=== PATIENT | female | born 1965 | race Caucasian/White ===

== ENCOUNTER 2019-05-24 12:48 | Outpatient (CLI) | payer BC, SELFPAY ==
--- NOTE | 2019-05-24 14:01 | W.PREOPHP ---
Assessment and Plan Assessment and plan (1) Arthritis of left hip: Status: Chronic Assessment and plan: Plan: Patient is a reliable historian and denies any areas of skin breakdown along the left leg. Educated patient that if they develop any lesions, redness or skin breakdown to contact office as skin concerns would be a reason to cancel surgery. Patient gives verbal understanding. Educated patient on surgery covering surgical technique via models, recovery process, benefits and risks including but not limited to risk of infection, blood clot, fracture, numbness/tingling, damage to soft tissue/blood vessels/nerves in detail. After discussion patient gives verbal understanding of risks and elects to proceed with scheduling surgery. Patient had opportunity to have questions answered to their satisfaction. They will contact office if issues arise. Patient will continue to be scheduled for left total hip replacement with Dr. Brunner. History of Present Illness Narrative: Ms. Mohamud is a 53-year-old female who presents to clinic for pre-operative visit for scheduled left DEANDRE with Dr. Brunner. Patient has been experiencing bilateral hip pain with the left being more severe than the right for several years. Patient was scheduled to have left DEANDRE with Dr. Bustos in [place], [place] but was reportedly cancelled because of her continued smoking. Patient is trying to quit smoking is on nicotine replacement therapy and reports recent weight loss of 65 pounds. Her left hip pain has only progressed to become more severe to the point where she has difficulty driving her car, work and ambulate. Due to her continued pain she was offered and elected to proceed with surgical intervention. Pertinent Surgical Information Reports history of murmur since a child. 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 Denies past medical history of: stroke, cardiac issues, angina, asthma, COPD, sleep apnea, renal issues, liver issues, hepatitis, gastrointestinal issues, ulcers, hyperlipidemia, bleeding disorders, seizures, migraines, anxiety, diabetes, autoimmune disorders, thyroid issues Denies prior complications from surgery or anesthesia. Review of Systems Constitutional Constitutional: Denies fever(s), Denies frequent falls and Denies headache(s) Eyes Eyes: Denies change in vision ENT Ears, Nose, Mouth, and Throat: Denies dizziness, Denies ear discharge, Denies headache(s), Denies epistaxis, Denies nasal discharge and Denies sore throat Cardiovascular Cardiovascular: Denies chest pain, Denies rapid heart rate, Denies irregular heart rhythm, Denies dyspnea, Denies dyspnea on exertion and Denies slow heart rate Respiratory Respiratory: Denies cough, Denies dyspnea, Denies dyspnea on exertion and Denies wheezing Gastrointestinal Gastrointestinal: Denies abdominal pain, Denies melena, Denies hematochezia, Denies constipation, Denies diarrhea, Denies nausea and Denies vomiting Genitourinary Genitourinary: Denies hematuria, Denies dysuria and Denies urinary urgency Musculoskeletal Musculoskeletal: Reports as per HPI, Denies numbness and Denies tingling Neurologic Neurologic: Denies dizziness, Denies frequent falls, Denies headache(s), Denies numbness and Denies tingling Psychiatric Psychiatric: Denies anxiety and Denies depression Allergic/Immunologic Allergic/Immunologic: Denies wheezing PFSH Medical History (Updated 05/24/19 @ 14:17 by Leesa Mello) Allergic rhinitis (Acute) Arthritis (Acute) Claustrophobia (Acute) Depression (Chronic) Hypertension (Chronic) Lumbago with sciatica (Acute) Post-menopausal bleeding (Acute) Social History (Updated 05/22/19 @ 10:02 by Cathleen Victor RN) Smoking/Tobacco Use Status: Current every day Tobacco Type: cigarettes Alcohol Intake: current Alcohol Intake frequency: a few times a week Drug use: Never Substance use type: does not use Current gender identity: female Do you feel safe at home: Yes Do you feel safe in your relationship?: Yes Meds Home Medications and Allergies Home Medications Medication Instructions Recorded Confirmed Type acetaminophen 500 mg tablet 1,000 mg PO Q4H PRN tab 05/22/19 05/24/19 History bupropion HCl 150 mg 24 hr tablet, 150 mg PO QAM 05/22/19 05/24/19 History extended release gabapentin 100 mg capsule 100 mg PO BID 05/22/19 05/24/19 History sertraline 50 mg tablet 50 mg PO QAM 05/22/19 05/24/19 History Allergies Allergy/AdvReac Type Severity Reaction Status Date / Time No Known Allergies Allergy Verified 05/24/19 14:19 Exam Const General: cooperative and no acute distress HENMT Head: normal to inspection, normocephalic and atraumatic Ears: external ears normal General nose exam: external nose normal and no nasal discharge Face and sinus: face symmetric Mouth: oral mucosae normal, lip normal, tongue normal and moist mucous membranes Teeth and gingiva: dentition normal Throat: posterior oropharynx normal Eyes General: appearance normal, both eyes and all related structures Pupils: PERRL (Left eye was less reactive than contralateral ) EOM: EOM intact bilaterally Neck Neck: trachea midline Carotids: normal carotid upstroke Lymphatic: no lymphadenopathy noted Resp Effort & Inspection: normal respiratory effort and able to speak in complete sentences Auscultation: clear to auscultation bilaterally, no rales, no rhonchi and no wheezes Cardio Heart Sounds: S1 normal and S2 normal Pulses: radial pulses present bilaterally Skin General skin exam: no rashes or lesions noted Results Labs Result diagrams: 05/24/19 13:47
[2019-05-24 14:05] LABS: Abs Immature Grans 0.01 k/cumm (0.0-0.09); Absolute Basophil Count 0.02 k/cumm (0.0-0.2); Absolute Lymphocyte Count 2.86 k/cumm (1.2-3.4); Absolute Monocyte Count 0.45 k/cumm (0.11-0.7); Absolute Neutrophil Count 3.93 k/cumm (1.2-6.7); Basophils % 0.3; Eosinophils % 1.4; HCT 39.8 % (36.0-46.0); HGB 13.3 g/dL (12.0-15.5); Immature Grans % 0.1; Lymphocytes % 38.8; Mean Corp. HGB Concentration 33.4 g/dL (32.0-36.0); Mean Corpuscular Hemoglobin 32.2 pg (27.0-33.0); Mean Corpuscular Volume 96.4 fL (80-95); Mean Platelet Volume 9.1 fL (8.0-11.0); Monocytes % 6.1; Neutrophils % 53.3; Platelet Count 307 x1000/uL (130-400); RBC 4.13 m/cumm (4.00-5.20); RBC Distribution Width 14.1 % (11.7-14.6); White Blood Cell Count 7.37 k/cumm (4.4-10.8)
== END 2019-05-24 13:08 ==
PROVIDERS: PCP Neuromusculoskeletal Medicine & OMM; Visit Provider Orthopaedic Surgery
DX: M25.552 Pain in left hip (principal); M16.12 Unilateral primary osteoarthritis, left hip; Z01.818 Encounter for other preprocedural examination; Z01.812 Encounter for preprocedural laboratory examination
CPT/HCPCS: 36415; 86850; 86900; 86901; NC; 85025

== ENCOUNTER 2019-05-29 08:48 | Inpatient (IN) | payer BC, SELFPAY ==
[2019-05-24 13:07] VITALS: BP 135/80; PULSE 87; RESP 16; TEMP 37.4; O2SAT 97
[2019-05-29] VITALS (11 sets, daily range): BP systolic 88–128; BP diastolic 45–91; PULSE 63–81; RESP 10–19; TEMP 36–36.5; O2SAT 94–98
[2019-05-29] MEDS: Lactated Ringers 1,000 ML 80 ML IV ×2 (10:31→14:18)
[2019-05-29] MEDS: ceFAZolin 2 GM/50 ML BAG IVPB ×2 (12:20→18:51)
--- NOTE | 2019-05-29 13:56 | DI.RAD_ITS ---
EXAM: XR HIP LT 1V INDICATION: Left total hip. COMPARISON: No exams were available for comparison TECHNIQUE: 2D digital imaging was performed. FINDINGS: Exam was performed portably in the OR. Components of a left total hip prosthesis are noted. The com ponents appear satisfactorily aligned.
--- NOTE | 2019-05-29 15:58 | DI.RAD_ITS ---
EXAM: XR PELVIS AP INDICATION: check total hip components in RR. COMPARISON: XR HIP LT 1V from 05/29/2019 TECHNIQUE: 2D digital imaging was performed. FINDINGS: Portable exam was performed in the recovery room. A total left hip prosthesis has been placed. The components appear well aligned on this single view. Severe degenerative changes of the right hip are noted.
[2019-05-29] MEDS: POTASSIUM CHLORIDE/0.9% NACL 1,000 ML 125 MEQ IV (16:51)
[2019-05-29] MEDS: Normal Saline Flush 10 ML SYR IV ×2 (16:55→20:18)
--- NOTE | 2019-05-29 17:20 | NUR.NOTE ---
Nursing Note: Patient admitted to Med/Surg room 229 from PACU via stretcher at 1612.
[2019-05-29] MEDS: Docusate Sodium 100 MG CAP PO (20:17)
[2019-05-29] MEDS: Gabapentin 100 MG CAP PO (20:17)
[2019-05-29] MEDS: Ketorolac 30 MG/ML VIAL IVP (20:17)
[2019-05-29] MEDS: oxyCODONE-CR 10 MG TABCR PO (20:19)
[2019-05-30] MEDS: ceFAZolin 2 GM/50 ML BAG IVPB ×2 (00:02→07:08)
[2019-05-30] MEDS: Ketorolac 30 MG/ML VIAL IVP ×2 (02:27→09:15)
[2019-05-30] MEDS: Normal Saline Flush 10 ML SYR IV (02:27)
[2019-05-30 03:33] VITALS: BP 124/78; PULSE 82; RESP 18; TEMP 36.5; O2SAT 97
[2019-05-30 07:35] VITALS: BP 123/71; PULSE 78; RESP 17; TEMP 36; O2SAT 97
[2019-05-30 07:44] LABS: HCT 32.9 % (36.0-46.0); HGB 10.7 g/dL (12.0-15.5); Mean Corp. HGB Concentration 32.5 g/dL (32.0-36.0); Mean Corpuscular Hemoglobin 31.5 pg (27.0-33.0); Mean Corpuscular Volume 96.8 fL (80-95); Mean Platelet Volume 9.5 fL (8.0-11.0); Platelet Count 260 x1000/uL (130-400); RBC Distribution Width 13.9 % (11.7-14.6); White Blood Cell Count 6.05 k/cumm (4.4-10.8)
[2019-05-30] MEDS: POTASSIUM CHLORIDE/0.9% NACL 1,000 ML 125 MEQ IV (08:22)
[2019-05-30] MEDS: Docusate Sodium 100 MG CAP PO (09:16)
[2019-05-30] MEDS: Multivitamin w/Minerals TAB 1 TAB PO (09:17)
[2019-05-30] MEDS: Pantoprazole 40 MG TABCR PO (09:17)
[2019-05-30] MEDS: Gabapentin 100 MG CAP PO (09:18)
[2019-05-30] MEDS: Sertraline 50 MG TAB PO (09:19)
[2019-05-30] MEDS: buPROPion-XL 150 MG TABCR PO (09:19)
[2019-05-30] MEDS: oxyCODONE-CR 10 MG TABCR PO (09:19)
[2019-05-30 09:37] VITALS: O2SAT 97
[2019-05-30 11:15] VITALS: BP 123/71; PULSE 78; RESP 17; TEMP 36
--- NOTE | 2019-05-30 11:24 | W.NUTCONSULT ---
Date of service: 05/30/19 Time of Service: 11:24 Nutritional Consult ASSESSMENT: 53 year old female with left hip arthritis, awaiting hip replacement. Following regular meal plan with excellent po intake. Currently, not considered at nutritional risk. screen by Joann Mcfarland MS,RD NUTRITIONAL DIAGNOSIS: awaiting DEANDRE, Arthritis of left hip, obesity MONITORING AND EVALUATION: will monitor po intake and weight trends and intervene as needed Time Spent in Nutritional Counseling and Treatment: 0 time face to face
--- NOTE | 2019-05-30 12:01 | IN_ITS ---
Date of service: 05/30/19 Time of Service: 08:39 PT Notes Visit Reasons: POST OP L TOTAL HIP REPL Physical Therapy Inpatient Initial Evaluation Date: 05/30/2019 Referring Doctor: Tod Brunner MD PT Orders: PT CONSULT: Status post Ortho surgery. S/P posterior L hip total arthroplasty Precautions: Fall. Standard. WBAT on left LE. Patient Profile/Admitting Diagnosis: Patient is a 53-year-old female with arthritis of left hip and is status post posterior total hip arthroplasty on postoperative day 1. PMHX: Medical History (Updated 05/24/19 @ 14:17 by Leesa Mello) Allergic rhinitis (Acute) Arthritis (Acute) Claustrophobia (Acute) Depression (Chronic) Hypertension (Chronic) Lumbago with sciatica (Acute) Post-menopausal bleeding (Acute) Social History/Home Situation: Patient lives with in a 1 floor house w ith a ramp to enter, has a ramp to the living room and has a step up to the shower area. [id number] and her daughter live within 100 feet from her house. 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 Equipment Owned/DME: Wheelchair, 4 wheeled walker, single-point cane, rails, raised toilet seat, hospital bed Subjective: Patient is agreeable to a PT consult. Patient reports pain and discomfort on the left hip aggravated with movement and weight bearing. She denies headache, chest pain, and dizziness throughout PT session. She has good knowledge and awareness of her movement precautions. Objective: General Observation: Patient is seen seated on recliner chair. IV in left UE. Bond catheter in place. Wound dressing to surgical incision seen. Bilateral TEDs ES on legs. Mental Status: Alert and oriented x4 Pain: 1-2 over 10 on the left hip with movement and weightbearing ROM: Right Upper Extremity: Shoulder Flexion WFL. Shoulder abduction WFL. Elbow flexion WFL. Wrist flexion WFL. Opening and closing of hand WFL. Left Upper Extremity: Shoulder Flexion WFL. Shoulder abduction WFL. Elbow flexion WFL. Wrist flexion WFL. Opening and closing of hand WFL. Right Lower Extremity: Hip flexion WFL. Hip abduction WFL. Knee flexion WFL. Ankle dorsiflexion WFL. Ankle plantarflexion WFL. Left Lower Extremity: Hip flexion NT due to movement precautions. Hip abduction WFL. Knee flexion WFL. Ankle dorsiflexion WFL. Ankle plantarflexion WFL. Strength: Right Upper Extremity: Shoulder flexors 5/5. Shoulder abductors 5/5. Elbow flexors 5/5. Elbow extensors 5/5. Cake Former strong. Left Upper Extremity: Shoulder flexors 5/5. Shoulder abductors 5/5. Elbow flexo rs 5/5. Elbow extensors 5/5. Cake Former strong. Right Lower Extremity: Hip flexors 5/5. Hip abductors 5/5. Knee flexors 5/5. Knee extensors 5/5. Ankle dorsiflexors 5/5. Ankle plantarflexors 5/5. Left Lower Extremity:Hip flexors able to hold minimal resistance while seated at edge of bed with hip at 90 degrees. Hip abductors 4-/5. Knee flexors 4/5. Knee extensors 4/5. Ankle dorsiflexors 5/5. Ankle plantarflexors 5/5. Sensation: Intact as to pain and pressure on bilateral lower extremities. Bed Mobility/Transfers: Rolling supervision Supine to sit supervision Sit to supine supervision Stand to sit supervision Bed to chair supervision Chair to bed supervision Gait: Patient tolerated level surface ambulation of 100 feet with front wheeled walker with WBAT on left side requiring SBA with white-based gait and decreased knee flexion on the left. Antalgic gait observed. Nkechi decreased due to pain. Balance: Static Sitting: Normal Dynamic Sitting: Normal Static Standing: Fair Dynamic Standing: Fair Special Tests: Mobility Limitations Standardized Measure [facility] 6 clicks Basic Mobility Inpatient Short Form: Raw Score: 18 CMS Score: 47% deficit Informed Consent/Education: Patient instructed in purpose of PT consult and plan of care. Patient was also instructed on hourly performance of gluteal and quadriceps setting exercises x10 reps along with x20 reps of ankle pumping in order to maintain flexibility and maximize healing to operated area. Assessment: Patient is a 53-year-old female with arthritis of left hip and is status post posterior total hip arthroplasty on postoperative day 1. Patient is highly motivated to return to prior level of function and to return home today. She has all the equipment she needs at home and has a good support network. She is well aware of her movement precautions. Her prognosis for regaining prior level of function is good. Patient presents with clinical signs and symptoms consistent with current/admitting diagnoses that have resulted to mobility limitations, gait instability, generalized weakness, and impairment of motor control as demonstrated by the following impairment level findings: 1. Decreased strength to left hip major muscle groups 2. Impaired standing balance 3. Impaired activity tolerance 4. Limitation of joint range of motion in left hip due to movement precautions Impairments are contributing to the following functional limitations: 1. Inability to safely ambulate without assistive device and physical assistance 2. Increase completion time for mobility ADL performance 3. Increased fall risk 4. Inability to negotiate steps alone safely Patient is assessed as a 34101 moderate complexity based on the following: History: Patient is a 53-year-old female with arthritis of left hip and is status post posterior total hip arthroplasty on postoperative day 1 with past medical history, functional limitations and underlying impairments as listed above Examination: Demonstrable impairment in strength, balance, and range of motion with underlying impairments and functional limitations as documented above Presentation: Stable Decision Makin moderate complexity Goals: Goals X1 week 1. Supine-Sit independent 2. Sit-Supine independent 3. Sit-Stand independent 4. Stand-Sit independent 5. Bed-Chair independent 6. Chair-Bed independent 7. Independent gait on level surface with use of least restrictive device for at least 300 feet without report of pain nor dyspnea 8. Independent stair negotiation while holding onto bilateral rails for at least 10 steps without report of pain nor dyspnea 9. Independent with home exercise program 10. Good static and dynamic standing balance/tolerance Plan of Care/Treatment Plan: 1-2x/day, 7 days/week x 1 week. Plan of care has been reviewed with the HAIRSPRING ASSEMBLER providing the service under Physical Therapy direction. Initiate Physical Therapy intervention for strengthening, bed mobility, transfers, gait, stairs, balance training, use of assistive device. DISCHARGE RECOMMENDATIONS: May benefit from skilled physical therapy services according to orthopedic surgeon's timeline recommendations. Patient will be educated and trained on home exercise program per DEANDRE exercise protocol in preparation for outpatient physical therapy services. TREATMENT CODE/TIME: 79445 x 27 minutes beginning at 8:39 AM. Thank you very much for this referral. Vale Kelley PT, DPT, CLT [facility] [place], [place]
--- NOTE | 2019-05-30 12:48 | W.PM.DS.N ---
Date of service: 05/30/19 Time of Service: 12:48 DS: Diagnosis Discharge Diagnosis (1) Arthritis of left hip: Status: Chronic Discharge Plan Disposition Patient Disposition: HOME Condition: Good Discharge Details Reason For Visit: POST OP L TOTAL HIP REPL Admit Date/Time: 05/29/19 08:48 Admit Provider: Tod Brunner Attending Provider: Tod Brunner Primary Care Provider: Alfonzo Upton Hospital Course Hospital Course: Patient was taken the operating room on the day of admission 05/29/2019 where she underwent a left total hip arthroplasty without complications. Postoperatively she was immobilized per protocol by physical therapy. She was up ambulating in the room on the same day of surgery. On the following day 05/30/2019, she asked to go home. She was experiencing very little discomfort. She was independent with transfers and activities. She was able to void after Bond was DC'd. Her hemoglobin was 10.7 g. She was afebrile and her vital signs were stable. I thought she had completed the acute care phase of the hospital and was safe for home discharge. Home Meds and New Rx's Prescriptions: New ibuprofen 600 mg tablet 600 mg PO TID Qty: 60 RF: 0 hydrocodone-acetaminophen 5-325 mg tablet 1 tab PO Q6H PRN (Reason: pain) Qty: 20 RF: 0 Continued gabapentin 100 mg capsule 100 mg PO BID RF: 0 sertraline 50 mg tablet 50 mg PO QAM RF: 0 acetaminophen [Tylenol Extra Strength] 500 mg tablet 1,000 mg PO Q4H PRNRF: 0 bupropion HCl 150 mg tablet extended release 24 hr 150 mg PO QAM RF: 0 Discharge Instructions Additional Instructions: Follow total hip precautions on L for 6 weeks. Give total hip precaution instruction sheet. Use walker to walk. Can put as much weight on L leg as your pain allows. Apply ice to incision L hip 4 times/day for 1 hour each time to decrease swelling and pain. Keep dressings L hip dry and in place for another 48 hours. After 48 hours, may remove dressings, shower and get incision wet. After showering, pat stitches dry and cover with light gauze dressing. Take one baby aspirin (81 mg) twice/day for 30 days to prevent blood clots in legs. Wear elastic stockings during daytime only for 2 weeks. Follow up with in one week. Take ibuprofen 3 times/day for next 20 days. Take hydrocodone for breakthru pain, if needed. Referrals: Tod Brunner MD [ [facility]] - (f/u in one week.) Activity:: Activity as Tolerated Equipment/Supplies:: Walker Diet:: As Tolerated Discharge Orders Discharge Orders: Discharge Order (Routine); Ordered 05/30/19 Ordered By: Tod Brunner DS: Summary Status at Discharge Functional status at discharge: uses cane/walker Overall status at discharge: patient is progressing back to baseline Mental Status: mental status grossly normal Speech and Movement: speech and movement normal Mood: congruent mood Affect: normal affect Exam Psych Mental Status: mental status grossly normal Speech and Movement: speech and movement normal Mood: congruent mood Affect: normal affect DS: Data Vitals/I&O Vitals and I&O: Vital Signs Temperature 36.0 C L 05/30/19 07:35 Temperature Source Tympanic 05/30/19 07:35 Pulse 78 05/30/19 07:35 Pulse Rhythm Regular 05/30/19 00:00 Respiratory Rate 17 05/30/19 07:35 Respiratory Effort 05/30/19 00:00 Respiratory Depth Normal 05/30/19 00:00 Respiratory Pattern Normal 05/30/19 00:00 Blood Pressure 123/71 05/30/19 07:35 Pulse Oximetry 97 05/30/19 09:37 Respiratory End-tidal CO2 38 05/29/19 15:56 Oxygen Delivery Method Room Air 05/30/19 09:37 Oxygen Flow Rate 0 05/30/19 09:37 Pain Level 0 05/30/19 09:15 Intake & Output 05/29/19 05/30/19 05/30/19 23:59 11:59 23:59 Intake Total 3670 / 3670 1050 / 1050 Output Total 1875 / 1875 1100 / 1100 Balance 1795 / 1795 -50 / -50 Intake: IV 1910 / 1910 1050 / 1050 Oral 1760 / 1760 Output: Urine 1575 / 1575 1100 / 1100 Estimated Blood Loss 300 / 300 Other: Urine Color Straw [place] Urine Appearance Clear Clear Stool Size Moderate Stool Characteristics Formed Emesis Description None Data Completed and Pending Labs on day of discharge: Labs from last 24 hours 05/30/19 06:54 WBC 6.05 RBC 3.40 L Hgb 10.7 L Hct 32.9 L MCV 96.8 H MCH 31.5 MCHC 32.5 RDW 13.9 Plt Count 260 MPV 9.5 PFSH Social History (Updated 05/22/19 @ 10:02 by Cathleen Victor RN) Smoking/Tobacco Use Status: Current every day Tobacco Type: cigarettes Tobacco: How many years used: 20 Alcohol Intake: current Alcohol Intake frequency: a few times a week Alcohol type: beer and wine Drug use: Never Substance use type: does not use Current gender identity: female Do you feel safe at home: Yes Do you feel safe in your relationship?: Yes
--- NOTE | 2019-05-30 15:30 | ROE_ITS ---
DATE OF PROCEDURE: May 29, 2019 PREOPERATIVE DIAGNOSIS: Osteoarthritis, left hip. POSTOPERATIVE DIAGNOSIS: Same. PROCEDURE: Left total hip arthroplasty. COMPONENTS USED: 1. Size 3 DePuy stem. 2. 50 mm acetabular component. 3. +4, 10 degree, 50x32 mm polyethylene liner. 4. 32 mm, +1 ceramic femoral head. All components were press fit. ANESTHESIA: Spinal, Josue Morris CRNA SURGEON: Tod Brunner M.D. WHIP SAWYER: Dimitri Romero ESTIMATED BLOOD LOSS: 300 cc's INDICATIONS: This is a 53-year-old white female with disabling left hip pain. Her pain has progress ed over the last couple of years to the point where she is extremely limited in her ambulation. She can no longer drive because of the pain. She had been advised that she needed a total hip replacemen t by another orthopedist and was actually scheduled for this. The surgery was cancelled because of q uestions about appropriate weight loss and continued use of nicotine. The patient had lost 65 pounds . She was on nicotine patches. She saw me for another opinion. I felt that she had advanced osteoa rthritis of her left hip and thought that she was a good candidate for a hip replacement. Risks and complications of the procedure have been explained to the patient in detail preoperatively. The lan ent wished to proceed as soon as possible. PROCEDURE: The patient was taken to the operating room on 05/29/19. She was given a spinal anestheti c. She was then turned to the left lateral position on the operating table. The position was mainta ined with a pneumatic beanbag. The left hip was then prepped and draped free in the usual sterile fa shion. A posterior approach was used, centered over the greater trochanter. The incision was carried throug h the skin down to the fascia. The iliotibial band and gluteus fascia were incised in line with the skin incision. The trochanteric bursa was excised. Charnley self-retaining retractors were inserted . The piriformis tendon was identified and then the piriformis tendon was released from the posterio r femoral neck. A posterior capsular flap was developed with sharp dissection. Hemostasis was obtai tremaine with electrocautery. The femoral head was then dislocated with the help of a bone hook. The fem oral neck was then resected at appropriate level and angle determined by the femoral neck resection maría elena fraga. Anterior capsulectomy was then performed and acetabular retractors were placed. The acetabulu m was then serially reamed with hemispheric reamers up to a size 50. I could not ream larger to get a 52 cup in. A 50 mm acetabular cup was then inserted and impacted into place with the impactor and mallet. A good press fit was obtained. The press fit was then supplemented by one screw through the acetabular component. A trial liner was inserted, +4 mm with a 10-degree posterior lip. Attention was turned to the femoral side. The femoral canal was then serially reamed to a size 3. I was unab le to fully seat the 4/5 reamer. The canal was serially broached up to a size 3 stem. There was an excellent tight fit with the size 3 stem. Trial reduction was then performed. Using a standard neck and a +1, 32 mm head, I was able to reduce the femoral component into the acetabulum with moderate f orce. Intraoperative AP x-ray was obtained, which confirmed that the +4 liner and the +1 head with a standard offset equalized the limb lengths. The cup position was good, and there was good fit and f ill of the femoral canal with a size 3 broach. The trial components were dislocated and removed. The manhole cover was placed in the acetabular she ll and then the actual liner, 32 x 50, +4 with a 10-degree posterior lip was then inserted into the a cetabular component and locked into place with the impactor and mallet. The size 3 porous-coated owen m was then inserted into the femoral canal and impacted into place with the armor reconnaissance vehicle driver and the mallet unt il fully seated. A ceramic, 32 mm, +1 head was then placed on the trunion of the stem and impacted i n place with the impactor and mallet. The femoral component was reduced into the acetabulum, again u sing force from two thumbs. The hip was stable with 90 degrees of flexion and 80 degrees of internal rotation. The hip was stable with external rotation in extension. The left thigh was abducted in a Valencia stand and closure was begun. Tranexamic acid, 2 grams in 150 cc's of saline was instilled into the wound and allowed to stay for a minute before suctioning. Any obvious bleeders were then cauter ized. Betadine and saline solution was placed into the wound and allowed to sit for thirty seconds b efore suctioning. The previously-created posterior capsular flap was fully developed and then was kelley tured to the posterior edge of the trochanter through drill holes with #2 FiberWire. The piriformis tendon was attached to the abductor tendon at its insertion on the greater trochanter with a few inte rrupted #1 Vicryl sutures. The iliotibial band and gluteus fascia were approximated with interrupted kerwex-uv-kgora sutures of #1 Vicryl suture material. The subcu was approximated with interrupted # 2-0 Vicryl sutures. The skin edges were approximated with [id number]-near sutures, interrupted, #3 -0 nylon sutures. The wound margins had been infiltrated from the skin down to the hip joint capsule with 0.5% Marcaine with an epinephrine solution for additional postoperative analgesia. Sterile donna ssings were applied of Xeroform gauze, sterile gauze 4x4's, ABD pad and tape with foam elastic tape. The patient was placed supine on the operating table; abductor pillow was placed between her legs an d she was transferred from the operating room to the recovery room in good condition. Estimated bloo d loss 300 cc's.
--- NOTE | 2019-05-30 15:52 | PT.INTREAT ---
Date of service: 05/30/19 Time of Service: 15:57 PT Notes Visit Reasons: POST OP L TOTAL HIP REPL Inpatient Physical Therapy Treatment Note [facility] Date: 05/30/2019 PRECAUTIONS: Fall, WBAT L SUBJECTIVE: Kaylee reports that she would like to discharge to home today. She is feeling good today. OBJECTIVE: PAIN: Patient complained of L hip discomfort with transfers and gait training BED MOBILITY/TRANSFERS Supine-sit: I with HOB flat Sit-supine: I with HOB flat Sit-stand: I Stand-sit: I GAIT Assistive Device: FWW Weight bearing: WBAT L Assist: S Distance: 120' Deviation: Wide-based gait THEREX: Patient completed a LE strengthening and stabilization program, as per flow sheet. ASSESSMENT: Patient tolerated session with complaints of increased L LE discomfort. He was able to tolerate a progression in gait distance with FWW support and supervision. She is independent with bed mobility and transfers at this time. PLAN: As per primary PT TREATMENT CODE/TIME: 30 minutes; [id number], [id number]
--- NOTE | 2019-05-30 20:53 | INITIAL_ITS ---
- If Service Date Differs Date of service: 05/30/19 Time of Service: 20:53 Care Management Initial Assess REASON FOR HOSPITALIZATION:: Total L Hip Replacement PAST MEDICAL HISTORY/PAST SURGICAL HISTORY:: Medical History. Allergic rhinitis (Acute). Arthritis (Acute). Claustrophobia (Acute). Depression (Chronic). Hypertension (Chronic). Lumbago with sciatica (Acute). Post-menopausal bleeding (Acute) PREVIOUS FUNCTIONAL STATUS/SOCIAL/FAMILY SUPPORTS:: Kaylee lives with her , Wolf in [place]. They live in a one level home, and have many accommodations in the home for handicap accessibility. 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 She is independent at baseline. CURRENT FUNCTIONAL STATUS:: Kaylee was sitting up in her chair when CM met with her. She was pleasant and engaged in conversation. She reported that she was feeling good and planning to go home today, per MD. She stated that she has prepared for this surgery and will not need any additional support at home. She stated that she has a supportive and her sister in law, who is also identified as a support, lives very close and will check in on her at home. CM will continue to follow. ADVANCE DIRECTIVES:: None on file. Has patient been provided with information about the portal?: Yes Did the patient sign up for the portal?: No CODE STATUS:: Full Code INSURANCE COVERAGE / FINANCIAL ISSUES:: BC/BS CURRENT HOME/COMMUNITY SERVICES/EQUIPMENT:: Kaylee has a FWW, Wheelchair, Cane, raised toilet seat, and grab bars at home. She does not have any community services at this time. PRIMARY CARE PHYSICIAN:: Alfonzo Upton POTENTIAL DISCHARGE NEEDS:: Evaluations for further needs, follow up appointments PATIENT/FAMILY EDUCATION NEEDS:: Review discharge instructions, discussion of self care needs including Ask Me Three ANTICIPATED BARRIERS TO DISCHARGE:: None identified TRANSPORTATION:: Her , Wolf will drive her home via private vehicle. PLAN:: Anticipate Kaylee will return home with no additional services when medically cleared. She will follow up with Ortho, as recommended. She will be d riven home by her via private vehicle. CM will continue to follow.
--- NOTE | 2019-05-30 21:01 | PDOC.CMDIS ---
- If Service Date Differs Date of service: 05/30/19 Time of Service: 21:02 LACE Index Scoring Tool - Questions: Length of Stay (in days): 2 Acuity (Admit via E.D.?): No E.D. Visits: 0 - Answers: Total Score: 2 Risk of Readmission: Low Risk Care Management Discharge Reason for Hospitalization: Total L Hip Replacement Discharge Plan: Kaylee will return home with no additional services at this time. She will follow up with Ortho, as recommended. Her will drive her home via private vehicle when ready. Patient/Family Education Needs: Review discharge instructions regarding activity levels and medications, discussion of self care needs including Ask Me Three
--- NOTE | 2019-05-31 16:50 | INDS_ITS ---
Date of service: 05/31/19 Time of Service: 16:50 PT Notes Visit Reasons: POST OP L TOTAL HIP REPL Inpatient Physical Therapy Discharge Summary Dates: 05/31/2019 Dates of Service: 05/30/2019 only This is a clinical summary of care provided on the duration of dates listed above. No charge was made in the completion of this documentation. Referring Doctor: Tod Brunner MD PT Orders: PT CONSULT: Status post Ortho surgery. S/P posterior L hip total arthroplasty Precautions: Fall. Standard. WBAT on left LE. Patient Profile/Admitting Diagnosis: Patient is a 53-year-old female with arthritis of left hip and is status post posterior total hip arthroplasty on postoperative day 1. PMHX: Medical History (Updated 05/24/19 @ 14:17 by Leesa Mello) Allergic rhinitis (Acute) Arthritis (Acute) Claustrophobia (Acute) Depression (Chronic) Hypertension (Chronic) Lumbago with sciatica (Acute) Post-menopausal bleeding (Acute) Social History/Home Situation: Patient lives with in a 1 floor house with a ramp to enter, has a ramp to the living room and has a step up to the shower area. Jitaew-zw-ery and her daughter live within 100 feet from her house. 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 Equipment Owned/DME: Wheelchair, 4 wheeled walker, single-point cane, rails, raised toilet seat, hospital bed Subjective: NT Objective: General Observation: NT Mental Status: NT Pain:NT ROM: Right Upper Extremity: Shoulder Flexion WFL. Shoulder abduction WFL. Elbow flexion WFL. Wrist flexion WFL. Opening and closing of hand WFL. Left Upper Extremity: Shoulder Flexion WFL. Shoulder abduction WFL. Elbow flexion WFL. Wrist flexion WFL. Opening and closing of hand WFL. Right Lower Extremity: Hip flexion WFL. Hip abduction WFL. Knee flexion WFL. Ankle dorsiflexion WFL. Ankle plantarflexion WFL. Left Lower Extremity: Hip flexion NT due to movement precautions. Hip abduction WFL. Knee flexion WFL. Ankle dorsiflexion WFL. Ankle plantarflexion WFL. Strength: Right Upper Extremity: Shoulder flexors 5/5. Shoulder abductors 5/5. Elbow flexors 5/5. Elbow extensors 5/5. Head Banquet Waiter/Waitress strong. Left Upper Extremity: Shoulder flexors 5/5. Shoulder abductors 5/5. Elbow flexors 5/5. Elbow extensors 5/5. Head Banquet Waiter/Waitress strong. Right Lower Extremity: Hip flexors 5/5. Hip abductors 5/5. Knee flexors 5/5. Knee extensors 5/5. Ankle dorsiflexors 5/5. Ankle plantarflexors 5/5. Left Lower Extremity:Hip flexors able to hold minimal resistance while seated at edge of bed with hip at 90 degrees. Hip abductors 4-/5. Knee flexors 4/5. Knee extensors 4/5. Ankle dorsiflexors 5/5. Ankle plantarflexors 5/5. Sensation: Intact as to pain and pressure on bilateral lower extremities. Bed Mobility/Transfers: Rolling independent Supine to sit independent Sit to supine independent Stand to sit independent Bed to chair independent Chair to bed independent Gait: Patient tolerated level surface ambulation of 120 feet with front wheeled walker with WBAT on left side requiring supervision with white-based gait and decreased knee flexion on the left. Antalgic gait observed. Nkechi decreased due to pain. Balance: Static Sitting: Normal Dynamic Sitting: Normal Static Standing: Fair Dynamic Standing: Fair Assessment: Patient is a 53-year-old female with arthritis of left hip and is status post posterior total hip arthroplasty on postoperative day 1. Patient is highly motivated to return to prior level of function and to return home today. She has all the equipment she needs at home and has a good support network. She is well aware of her movement precautions. Her prognosis for regaining prior level of function is good. Patient continues to present with clinical signs and symptoms consistent with current/admitting diagnoses that have resulted to mobility limitations, gait instability, generalized weakness, and impairment of motor control as demonstrated by the following impairment level findings: 1. Decreased strength to left hip major muscle groups 2. Impaired standing balance 3. Impaired activity tolerance 4. Limitation of joint range of motion in left hip due to movement precautions Impairments continue to contributeto the following functional limitations: 1. Inability to safely ambulate without assistive device and physical assistance 2. Increase completion time for mobility ADL performance 3. Increased fall risk Goals: Goals X1 week 1. Supine-Sit independent MET 2. Sit-Supine independent MET 3. Sit-Stand independent MET 4. Stand-Sit independent MET 5. Bed-Chair independent MET 6. Chair-Bed independent MET 7. Independent gait on level surface with use of least restrictive device for at least 300 feet without report of pain nor dyspnea NOT MET 8. Independent stair negotiation while holding onto bilateral rails for at least 10 steps without report of pain nor dyspnea N/A 9. Independent with home exercise program MET 10. Good static and dynamic standing balance/tolerance NOT MET DISCHARGE RECOMMENDATIONS: May benefit from skilled physical therapy services according to orthopedic surgeon's timeline recommendations. Patient will be educated and trained on home exercise program per DEANDRE exercise protocol in preparation for outpatient physical therapy services. TREATMENT CODE/TIME: GA Thank you very much for this referral. Vale Kelley PT, DPT, CLT [facility] [place], [place]
== END 2019-05-30 15:10 | disposition home or self-care (01) | DRG 470 ==
LOC: PDS 08:48 → MS 16:25
PROVIDERS: Admitting Provider Orthopaedic Surgery; PCP Neuromusculoskeletal Medicine & OMM; Visit Provider Orthopaedic Surgery
PROC: 0SRB04A Replacement of Left Hip Joint with Ceramic on Polyethylene Synthetic Substitute, Uncemented, Open Approach (ICD-10-PCS; CPT 27130; principal; 2019-05-29 11:45)
DX: M16.12 Unilateral primary osteoarthritis, left hip (principal); Z96.642 Presence of left artificial hip joint; M25.552 Pain in left hip; I10 Essential (primary) hypertension; F32.9 Major depressive disorder, single episode, unspecified; F17.210 Nicotine dependence, cigarettes, uncomplicated
CPT/HCPCS: 27130; 36415; 85027; 97110; 97162; 97530; NC; 72170; 73501; J0690; J1885; L1686

== ENCOUNTER 2019-06-06 11:00 | Outpatient (CLI) | payer BC, SELFPAY ==
--- NOTE | 2019-06-06 11:15 | DI.RAD_ITS ---
EXAM: XR HIP LT COMPLETE AP PELVIS INDICATION: 1ST POST OP. COMPARISON: XR PELVIS AP from 05/29/2019 TECHNIQUE: 2D digital imaging was performed. FINDINGS: There has been no change in the appearance of the left total hip prosthesis or surrounding bone. Sev ere degenerative changes are again noted in the right hip.
== END 2019-06-06 11:20 ==
PROVIDERS: PCP Neuromusculoskeletal Medicine & OMM; Visit Provider Orthopaedic Surgery
DX: M16.12 Unilateral primary osteoarthritis, left hip (principal); Z96.642 Presence of left artificial hip joint; Z47.1 Aftercare following joint replacement surgery; M16.11 Unilateral primary osteoarthritis, right hip
CPT/HCPCS: 73502

== ENCOUNTER 2019-10-24 11:40 | Outpatient (CLI) | payer BC, SELFPAY ==
--- NOTE | 2019-10-24 10:30 | DI.RAD_ITS ---
EXAM: XR PELVIS AP CLINICAL HISTORY: right hip pain; status post left DEANDRE TECHNIQUE: 2D digital imaging was performed. COMPARISON: XR HIP LT COMPLETE AP PELVIS from 06/06/2019 FINDINGS: There has been no change in the left total hip prosthesis or surrounding bone. There are severe dege nerative changes of the right hip which also appears stable. There is joint space narrowing, periart icular sclerosis and subchondral cyst formation. IMPRESSION: Unremarkable left hip prosthesis. Severe degenerative changes of the right hip.
== END 2019-10-24 12:00 ==
PROVIDERS: PCP Neuromusculoskeletal Medicine & OMM; Visit Provider Physician Assistant
DX: M25.551 Pain in right hip (principal); Z96.642 Presence of left artificial hip joint
CPT/HCPCS: 72170

== ENCOUNTER 2019-11-16 03:09 | Outpatient (CLI) | payer BC, SELFPAY | END 2019-11-16 03:29 | PROVIDERS: PCP Neuromusculoskeletal Medicine & OMM; Visit Provider Orthopaedic Surgery | DX: M25.551 Pain in right hip (principal); M16.11 Unilateral primary osteoarthritis, right hip; Z01.818 Encounter for other preprocedural examination; Z01.812 Encounter for preprocedural laboratory examination | CPT/HCPCS: 36415; 86850; 86900; 86901 ==

== ENCOUNTER 2019-11-16 07:19 | Outpatient (CLI) | payer BC, SELFPAY ==
[2019-11-17 15:56] LABS: COVID-19 RT-PCR UVMMC Result Negative (Negative)
== END 2019-11-16 07:39 ==
PROVIDERS: PCP Neuromusculoskeletal Medicine & OMM; Visit Provider Orthopaedic Surgery
DX: Z11.59 Encounter for screening for other viral diseases (principal); Z01.818 Encounter for other preprocedural examination
CPT/HCPCS: U0003

== ENCOUNTER 2019-11-20 06:09 | Inpatient (IN) | payer BC, SELFPAY ==
[2019-11-20] VITALS (12 sets, daily range): BP systolic 108–139; BP diastolic 60–90; PULSE 75–89; RESP 10–18; TEMP 35.9–37.5; O2SAT 96–99
--- NOTE | 2019-11-20 | DI.RAD_ITS ---
EXAM: XR PELVIS AP CLINICAL HISTORY: check total hip components in RR TECHNIQUE: COMPARISON: CR XR PELVIS AP from 10/24/2019 FINDINGS: Two views were obtained and show new total right hip joint replacement in position. The components a ppear well seated. Old left-sided total hip joint replacement also noted with components well seated . IMPRESSION:
[2019-11-20] MEDS: Lactated Ringers 1,000 ML 80 ML IV (06:53)
--- NOTE | 2019-11-20 07:00 | DI.RAD_ITS ---
EXAM: XR HIP RT IN OR CLINICAL HISTORY: RIGHT HIP ARTHRITIS TECHNIQUE: COMPARISON: CR XR HIP LT COMPLETE AP PELVIS from 06/06/2019 FINDINGS: AP view of pelvis was obtained in the OR. Previously noted left hip total joint replacement noted. Acetabular component of right hip joint replacement has been placed. Sizing component is present in the proximal right femur. IMPRESSION:
[2019-11-20] MEDS: ceFAZolin 2 GM/50 ML BAG IVPB (07:37)
[2019-11-20] MEDS: Ketorolac 15 MG/ML VIAL IVP (10:51)
[2019-11-20] MEDS: POTASSIUM CHLORIDE/0.9% NACL 1,000 ML 125 MEQ IV (11:20)
[2019-11-20] MEDS: oxyCODONE-CR 10 MG TABCR PO ×2 (12:36→23:54)
[2019-11-20] MEDS: ceFAZolin 1 GM/50 ML BAG IVPB ×3 (12:43→23:54)
[2019-11-20] MEDS: Docusate Sodium 100 MG CAP PO ×2 (13:42→19:41)
[2019-11-20] MEDS: Gabapentin 100 MG CAP PO ×2 (13:42→19:41)
[2019-11-20] MEDS: oxyCODONE 5 mg/Acetaminophen 325 mg TAB 1 TAB PO (13:42)
--- NOTE | 2019-11-20 14:46 | IN_ITS ---
Date of service: 11/20/19 Time of Service: 14:46 PT Notes Visit Reasons: POST OP (R) TOTAL HIP Physical Therapy Inpatient Initial Evaluation Physical Therapy Inpatient Initial Evaluation Date: 11/20/2019 Referring Doctor: Tod Brunner MD PT Orders: PT CONSULT: Status post Ortho surgery. S/P posterolateral R hip total arthroplasty Precautions: Fall. Standard. WBAT on right LE. Posterolateral hip precautions on. Patient Profile/Admitting Diagnosis: Patient is a 54-year-old female with arthritis of the right hip status post posterolateral total hip arthroplasty on postoperative day 1. PMHX: Medical History (Updated 11/20/2019 @ 14:46 by Vale Kelley DPT) Allergic rhinitis (Acute) Arthritis (Acute) Claustrophobia (Acute) Depression (Chronic) Hypertension (Chronic) Lumbago with sciatica (Acute) Post-menopausal bleeding (Acute) Surgical History (Updated 06/12/19 @ 12:15 by Leesa Mello) Status post total hip replacement, left (05/29/19) Social History/Home Situation: Patient lives with in a 1 floor house with a ramp to enter. She has a ramp to the living room and has a step up to the shower area. [id number] and her daughter live within 100 feet from her house. 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 Equipment Owned/DME: Wheelchair, 4 wheeled walker, single-point cane, rails, raised toilet seat, hospital bed Subjective: Patient reports pain in the right hip aggravated with movement and weight bearing. She denies headache, chest pain, and dizziness throughout PT session. She has good knowledge and awareness of her movement precautions. Objective: General Observation: IV in left UE. Bond catheter in place. Mepilex Ag over surgical incision seen. JIM on L leg. Mental Status: Alert and oriented x4 Pain: 4/10 on the R hip with movement and with weight bearing ROM: Right Upper Extremity: Shoulder Flexion WFL. Shoulder abduction WFL. Elbow flexion WFL. Wrist flexion WFL. Opening and closing of hand WFL. Left Upper Extremity: Shoulder Flexion WFL. Shoulder abduction WFL. Elbow flexion WFL. Wrist flexion WFL. Opening and closing of hand WFL. Right Lower Extremity: Hip flexion up to 90 degrees per movement precautions. Hip abduction WFL. Knee flexion WFL. Ankle dorsiflexion WFL. Ankle plantarflexion WFL. Left Lower Extremity:Hip flexion WFL. Hip abduction WFL. Knee flexion WFL. Ankle dorsiflexion WFL. Ankle plantarflexion WFL. Strength: Right Upper Extremity: Shoulder flexors 5/5. Shoulder abductors 5/5. Elbow flexors 5/5. Elbow extensors 5/5. Multiple Wire Sawyer strong. Left Upper Extremity: Shoulder flexors 5/5. Shoulder abductors 5/5. Elbow flexors 5/5. Elbow extensors 5/5. Multiple Wire Sawyer strong. Right Lower Extremity: Hip flexors 3-/5. Hip abductors 4/5. Knee flexors 4/5. Knee extensors 4/5. Ankle dorsiflexors 5/5. Ankle plantarflexors 5/5. Left Lower Extremity:Left Lower Extremity:Hip flexors 5/5. Hip abductors 5/5. Knee flexors 5/5. Knee extensors 5/5. Ankle dorsiflexors 5/5. Ankle plantarflexors 5/5. Sensation: Intact as to pain and pressure on bilateral lower extremities. Bed Mobility/Transfers: Rolling standby assist Supine to sit standby assist with HOB at 30 degrees, able to use BUE for support Sit to supine standby assist with HOB at 30 degrees, able to use BUE for support Sit to stand contact-guard assist with minimal verbal cues for hand placement, able to use BUE for support, requires use of front wheeled walker Stand to sit contact-guard assist with minimal verbal cues for hand placement, able to use BUE for support Bed to chair contact-guard assist with minimal verbal cues for hand placement, able to use BUE for support, requires use of front wheeled walker Chair to bed contact-guard assist with minimal verbal cues for hand placement, able to use BUE for support, requires use of front wheeled walker Gait: Patient tolerated level surface ambulation of 80 feet with front wheeled walker with WBAT on right LE requiring CGA with white-based gait and decreased knee flexion on the right. Antalgic gait observed. Nkechi decreased due to pain. Balance: Static Sitting: Normal Dynamic Sitting: Normal Static Standing: Fair Dynamic Standing: Fair Special Tests: Mobility Limitations Standardized Measure [employer] AM-PAC 6 clicks Basic Mobility Inpatient Short Form: Raw Score: 18 CMS Score: 36% deficit Informed Consent/Education: Patient instructed in purpose of PT consult and plan of care. Assessment: Kaylee demonstrates need for assistive ambulatory device for all mobility ADL performance, difficulty with ambulation due to postoperative status, impairment in balance, and weakness on the right hip major muscle group. Kaylee is a 54-year-old female with arthritis of right hip status post posterolateral total hip arthroplasty on postoperative day 1. Patient is highly motivated to return to prior level of function and to return home as soon as she is medically cleared. She has all the equipment she needs at home and has a good support network. She is well aware of her movement precautions. Her prognosis for regaining prior level of function is good. Patient presents with clinical signs and symptoms consistent with current/admitting diagnoses that have resulted to mobility limitations, gait instability, generalized weakness, and impairment of motor control as demonstrated by the following impairment level findings: 1. Decreased strength to R hip major muscle groups 2. Impaired standing balance 3. Impaired activity tolerance 4. Limitation of joint range of motion in R hip due to movement precautions Impairments are contributing to the following functional limitations: 1. Inability to safely ambulate without assistive device and physical assistance 2. Increase completion time for mobility ADL performance 3. Increased fall risk 4. Inability to negotiate steps alone safely Patient is assessed as a 22177 moderate complexity based on the following: History: Kaylee is a 53-year-old female with impairment level findings, functional limitations and past medical history as listed above Examination: Demonstrable impairment in strength, balance, and range of motion with underlying impairments and functional limitations as documented above Presentation: Evolving Decision Makin moderate complexity Goals: Goals X1 week 1. Supine-Sit independent 2. Sit-Supine independent 3. Sit-Stand independent 4. Stand-Sit independent 5. Bed-Chair independent 6. Chair-Bed independent 7. Independent gait on level surface with use of least restrictive device for at least 300 feet without report of pain nor dyspnea 8. Independent stair negotiation while holding onto bilateral rails for at least 3 steps without report of pain nor dyspnea 9. Independent with home exercise program 10. Good static and dynamic standing balance/tolerance Plan of Care/Treatment Plan: 1-2x/day, 7 days/week x 1 week. Plan of care has been reviewed with the MANAGER PHARMACEUTICAL providing the service under Physical Therapy direction. Initiate Physical Therapy intervention for strengthening, bed mobility, transfers, gait, stairs, balance training, use of assistive device. PT Intervention: Session today consisted of initial physical therapy evaluation as well as education and training on mobility ADL performance using a front wheeled walker. DISCHARGE RECOMMENDATIONS: May benefit from skilled physical therapy services according to orthopedic surgeon's timeline recommendations. Patient will be educated and trained on home exercise program per DEANDRE exercise protocol in preparation for outpatient physical therapy services. TREATMENT CODE/TIME: 44595 x 30 minutes, 20715 x 12 minutes beginning at 14:46 PM. Thank you very much for this referral. Vale Kelley PT, DPT, CLT [facility] [place], [place]
--- NOTE | 2019-11-20 15:11 | W.PM.OP ---
Date of service: 11/20/19 Time of Service: 15:11 Operative Note Operative Note DATE OF PROCEDURE: 11/20/19 PRE-OP DIAGNOSIS: Osteoarthritis right hip POST-OP DIAGNOSIS: same PROCEDURE: Right total hip arthroplasty SURGEON: Tod Brunner ASSISTING SURGEON: Leesa Mello ANESTHESIA: spinal ESTIMATED BLOOD LOSS: 300 PATHOLOGY: none sent COMPLICATIONS: None Patient was transported to: PACU Patient's condition: stable Implants: Size 2 high offset stem, 50 mm acetabular shell, 10 degree +450 mm liner, 32 mm +5 ceramic femoral head. Indications: Is a 54-year-old white female with end-stage osteoarthritis of her right hip. She has previously undergone a successful left total hip replacement about a year ago. She has reached the point where she has difficulty with activities of daily living because of pain in her right hip. Total hip replacement was recommended to alleviate her pain and restore some of her previous ambulatory abilities. Procedure Description: Patient was taken the operating room on 11/20/2019 where she was given a spinal anesthetic. She received 2 g of Ancef and was turned onto her left side with the right side up. Left hip was then prepped and draped free in usual sterile fashion. Standard posterior lateral incision was made centered over the greater trochanter. Incision was carried down through the skin and subcu down to the deep fascia. Subtenons veins were cauterized. The tibial band was incised in line with the skin incision and the incision was carried distally in line with the gluteus max fascia. Charnley self-retaining retractor was inserted. Posterior capsulotomy was then performed the femoral head was dislocated. Femoral neck was then resected appropriate level angle using femoral neck resection guide. Patient had a very tight hip with contracted soft tissues. I performed an anterior capsulectomy to help mobilize the femur anteriorly. I was unable to insert a curve retractor around the anterior rim of the acetabulum. I then used just a bone hook on the trochanter to retract the femoral shaft anteriorly enough to allow reaming. Acetabulum was then serially reamed with hemispherical reamers to an outside diameter of 50 mm. A 50 mm acetabular shell was then impacted into place. An excellent press-fit was obtained. The press-fit was supplemented by one screw through the acetabular shell. Trial liner was inserted and attention was turned to the femoral side. Box chisel was then used to gain access to the femoral canal the femoral canal was then reamed with straight reamers to size to 3. Femoral canal was then broached up to size 2. Size 2 was quite snug and tight. I did not feel I could get a size 3 in. I then put put a trial high offset femoral neck and head in place and reduce the femoral component in the acetabulum. A intraoperative AP x-ray was obtained which showed that limb lengths were close with a 1.5 femoral head. There was good fit and fill of the femoral canal with a size 2 stem. And the acetabular component was in good position. Clinically patient had a little too much shuck and I felt that a +5 would give her tighter fit. I dislocated the femoral trial and remove the broach from the femur. The trial liner was removed and the actual liner +410 degree size 50/32 was inserted into the acetabular shell and impacted into place. The actual size 2HA porous-coated femoral component was then inserted into the femoral canal and impacted into place until fully seated. 2 g of tranexamic acid and 150 cc of saline was instilled into the hip joint and allowed to stay for a minute before suctioning. The femoral component was then reduced into the acetabular component. Range of motion shows stable hip to about 90 degrees of flexion and 65 degrees of internal rotation. He was stable with extension and external rotation. The right thigh was abducted in a Valencia stand and closure was begun. Because of the capsulectomy that had to be performed to gain exposure there was not enough capsule left to make a posterior capsular flap. The wound margins were infiltrated 0.5 to Marcaine with epinephrine solution. The hip to begin a gluteus fascia were approximated with interrupted [id number] sutures of #1 Vicryl suture. Subcu was approximated interrupted 2-0 Vicryl sutures. A running 3-0 Monocryl subcuticular stitch was then used to approximate the skin edges this was supplemented by tissue glue and Steri-Strips. A Mepilex dressing was applied. Patient was then turned supine on the operating table and abduction pillow placed between the legs. He tolerated procedure well experienced no intraoperative complications. Estimated blood loss 300 cc patient was discharged to recovery in good condition.
[2019-11-20] MEDS: Ketorolac 30 MG/ML VIAL IVP ×2 (18:54→23:54)
[2019-11-20] MEDS: POTASSIUM CHLORIDE/0.9% NACL 1,000 ML 60 MEQ IV (20:47)
[2019-11-21 03:10] VITALS: BP 119/76; PULSE 77; RESP 16; TEMP 36.2; O2SAT 95
[2019-11-21] MEDS: Ketorolac 30 MG/ML VIAL IVP ×2 (06:05→11:41)
[2019-11-21] MEDS: ceFAZolin 1 GM/50 ML BAG IVPB (06:06)
[2019-11-21] MEDS: Pantoprazole 40 MG TABCR PO (07:12)
[2019-11-21 07:56] LABS: HCT 34.1 % (36.0-46.0); HGB 11.4 g/dL (12.0-15.5); Mean Corp. HGB Concentration 33.4 g/dL (32.0-36.0); Mean Corpuscular Hemoglobin 32.8 pg (27.0-33.0); Mean Platelet Volume 9.7 fL (8.0-11.0); Platelet Count 231 x1000/uL (130-400); RBC 3.48 m/cumm (4.00-5.20); RBC Distribution Width 12.4 % (11.7-14.6); White Blood Cell Count 4.84 k/cumm (4.4-10.8)
[2019-11-21] MEDS: Sertraline 50 MG TAB PO (08:10)
[2019-11-21] MEDS: Docusate Sodium 100 MG CAP PO (08:10)
[2019-11-21] MEDS: buPROPion-XL 150 MG TABCR PO (08:10)
[2019-11-21] MEDS: Gabapentin 100 MG CAP PO (08:10)
[2019-11-21] MEDS: Multivitamin w/Minerals TAB 1 TAB PO (08:10)
[2019-11-21 08:18] VITALS: BP 125/82; PULSE 81; RESP 19; TEMP 36.6; O2SAT 95
[2019-11-21] MEDS: Enoxaparin 30 MG/0.3 ML SYR SC (10:00)
[2019-11-21 11:25] VITALS: BP 120/75; PULSE 84; RESP 18; TEMP 36.5; O2SAT 97
[2019-11-21] MEDS: oxyCODONE-CR 10 MG TABCR PO (11:42)
[2019-11-21] MEDS: Normal Saline Flush 10 ML SYR IV (11:48)
--- NOTE | 2019-11-21 12:13 | PT.INTREAT ---
Date of service: 11/21/19 Time of Service: 08:40 PT Notes Visit Reasons: POST OP (R) TOTAL HIP Inpatient Physical Therapy Treatment Note [facility] Date: 11/21/2019 PRECAUTIONS: WBAT R SUBJECTIVE: Kaylee reports that she is feeling good this morning, with minimal discomfort in her R hip area. She reports that she would like to go home today. OBJECTIVE: 3/3 Posterior DEANDRE Prec PAIN: Minimal c/o discomfort in R hip area at rest and with gait training BED MOBILITY/TRANSFERS Supine-sit: I Sit-supine: S Sit-stand: I Stand-sit: I GAIT Assistive Device: FWW Weight bearing: WBAT R Assist: S Distance: 150' Deviation: Wide-based gait THEREX: Patient completed a lower extremity strengthening and stabilization program, in a supine position. Exercises included ankle pumps, quad sets, glute sets, and heel slides. STAIRS: 3x4 using B rails and a step to pattern with supervision ASSESSMENT: Patient tolerated session well, with minimal c/o R hip discomfort with gait training and while at rest. She was able to tolerate a progression in gait distance utilizing a step-through gait pattern, following instruction, with FWW support and supervision. PLAN: As per primary PT TREATMENT CODE/TIME: 30 minutes; 80168, 31416
--- NOTE | 2019-11-21 12:25 | W.PM.DS.N ---
Date of service: 11/21/19 Time of Service: 12:26 Discharge Plan Disposition Patient Disposition: HOME Condition: Good Discharge Details Reason For Visit: POST OP (R) TOTAL HIP Admit Date/Time: 11/20/19 06:09 Admit Provider: Tod Brunner Attending Provider: Tod Brunner Primary Care Provider: [facility] Course Hospital Course: The patient was taken to the OR on where she underwent a R total hip arthroplasty without complication. On post op day #1 she was pain free and fully independant with transfers and ambulation. She had completed all acute care goals. Hgb was 11.4 g. She was therefore discharged home. Home Meds and New Rx's Prescriptions: New celecoxib [Celebrex] 200 mg capsule 200 mg PO BID Qty: 60 RF: 0 oxycodone-acetaminophen 5-325 mg tablet 1 tab PO Q6H PRN (Reason: pain) Qty: 30 RF: 0 Continued gabapentin 100 mg capsule 100 mg PO BID RF: 0 sertraline 50 mg tablet 50 mg PO QAM RF: 0 acetaminophen [Tylenol Extra Strength] 500 mg tablet 1,000 mg PO Q4H PRNRF: 0 bupropion HCl 150 mg tablet extended release 24 hr 150 mg PO QAM RF: 0 ibuprofen 600 mg tablet 600 mg PO TID Qty: 60 RF: 0 Discontinued celecoxib 200 mg capsule 200 mg PO DAILY Qty: 30 RF: 1 Discharge Instructions Additional Instructions: May shower and get dressing wet on . Don't remove dressing--let the dressing gradually come off by itself. Apply ice to R hip incision 4 times/day for 1 hour each time. Walk every day as much as your discomfort allows. Use walker or crutches. Follow total hip precautions on R for 6 weeks. Take celebrex twice/day for 30 days to decrease swelling and inflammation. Take oxycodone for breakthru pain, if needed. Follow up with in 2 weeks. Referrals: Tod Brunner MD [ [facility] STAFF PHYSICIAN] - (f/u in 2 weeks.) Activity:: Activity as Tolerated Equipment/Supplies:: Crutches Diet:: As Tolerated Discharge Orders Discharge Orders: Discharge Order (Routine); Ordered 11/21/19 Ordered By: Tod Brunner DS: Summary Status at Discharge Functional status at discharge: independent ambulation Overall status at discharge: patient is not back to baseline Mental Status: mental status grossly normal Speech and Movement: speech and movement normal Mood: congruent mood Affect: normal affect Exam Psych Mental Status: mental status grossly normal Speech and Movement: speech and movement normal Mood: congruent mood Affect: normal affect DS: Data Vitals/I&O Vitals and I&O: Vital Signs Temperature 36.5 C 11/21/19 11:25 Temperature Source Tympanic 11/21/19 11:25 Pulse 84 11/21/19 11:25 Pulse Rhythm Regular 11/21/19 07:10 Respiratory Rate 18 11/21/19 11:25 Respiratory Effort Non-Labored 11/21/19 07:10 Respiratory Depth Normal 11/21/19 07:10 Respiratory Pattern Normal 11/21/19 07:10 Blood Pressure 120/75 11/21/19 11:25 Pulse Oximetry 97 11/21/19 11:25 Respiratory End-tidal CO2 38 11/20/19 10:46 Oxygen Delivery Method Room Air 11/21/19 11:25 Oxygen Flow Rate 0 11/21/19 11:25 Pain Level 0 11/21/19 11:42 Intake & Output 11/20/19 11/21/19 11/21/19 23:59 11:59 23:59 Intake Total 1820 / 2988.667 200 / 200 Output Total 1475 / 1925 1200 / 1200 Balance 345 / 1063.667 -1000 / -1000 Intake: IV 1100 / 1748.667 100 / 100 Oral 720 / 1240 100 / 100 Output: Urine 1475 / 1625 1200 / 1200 Other: Urine Color Yellow Straw Light Aylin Urine Appearance Clear Clear Urine Odor Normal Data Completed and Pending Labs on day of discharge: Labs from last 24 hours 11/21/19 06:15 WBC 4.84 RBC 3.48 L Hgb 11.4 L Hct 34.1 L MCV 98.0 H MCH 32.8 MCHC 33.4 RDW 12.4 Plt Count 231 MPV 9.7 PFSH Social History (Updated 05/22/19 @ 10:02 by Cathleen Victor RN) Smoking/Tobacco Use Status: Current every day Tobacco Type: cigarettes Tobacco: How many years used: 20 Alcohol Intake: current Alcohol Intake frequency: a few times a week Alcohol type: beer and wine Drug use: Never Substance use type: does not use Current gender identity: female Do you feel safe at home: Yes Do you feel safe in your relationship?: Yes
--- NOTE | 2019-11-21 14:14 | CHAPLAIN ---
When I visited Kaylee this morning, she said she was expecting to be discharged later today and her was coming to pick her up. Kaylee was very pleasant and easily engaged in a conversation.
--- NOTE | 2019-11-21 16:44 | INITIAL_ITS ---
- If Service Date Differs Date of service: 11/21/19 Time of Service: 16:44 Care Management Initial Assess REASON FOR HOSPITALIZATION:: R Total Hip Replacement PAST MEDICAL HISTORY/PAST SURGICAL HISTORY:: Medical History (Updated 11/20/2019 @ 14:46 by Vale Kelley DPT). Allergic rhinitis (Acute). Arthritis (Acute). Claustrophobia (Acute). Depression (Chronic). Hypertension (Chronic). Lumbago with sciatica (Acute). Post-menopausal bleeding (Acute). Surgical History (Updated 06/12/19 @ 12:15 by Leesa Mello). Status post total hip replacement, left (05/29/19) PREVIOUS FUNCTIONAL STATUS/SOCIAL/FAMILY SUPPORTS:: Kaylee lives with her , Wolf in [place]. They live in a one level home, and have many accommodations in the home for handicap accessibility. 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 She is independent at baseline. CURRENT FUNCTIONAL STATUS:: Kaylee was sitting up in bed when CM met with her. She reported that she was feeling great and is getting ready to return home. Per report, she will be discharged today. Kaylee stated that her , Wolf will be her main support. Her house is handicap accessible, and she has all of the equipment she needs. CM will continue to follow. ADVANCE DIRECTIVES:: None on file. Has patient been provided with information about the portal?: Yes Did the patient sign up for the portal?: Yes CODE STATUS:: Full Code INSURANCE COVERAGE / FINANCIAL ISSUES:: [employer] CURRENT HOME/COMMUNITY SERVICES/EQUIPMENT:: Kaylee has a FWW, Wheelchair, Cane, raised toilet seat, and grab bars at home. She does not have any community services at this time. PRIMARY CARE PHYSICIAN:: Alfonzo Upton POTENTIAL DISCHARGE NEEDS:: Follow up appointment with Ortho. PATIENT/FAMILY EDUCATION NEEDS:: Review discharge instructions, discussion of self care needs including Ask Me Three ANTICIPATED BARRIERS TO DISCHARGE:: None identified. TRANSPORTATION:: Wolf will drive her home via private vehicle. PLAN:: Anticipate Kaylee will return home with no additional services when medically cleared. She will follow up with Ortho, as recommended. She will be driven home by her via private vehicle. CM will continue to follow.
--- NOTE | 2019-11-21 16:51 | PDOC.CMDIS ---
- If Service Date Differs Date of service: 11/21/19 Time of Service: 16:51 LACE Index Scoring Tool - Questions: Length of Stay (in days): 2 Acuity (Admit via E.D.?): No E.D. Visits: 0 - Answers: Total Score: 2 Risk of Readmission: Low Risk Care Management Discharge Reason for Hospitalization: R Total Hip Replacement Discharge Plan: Kaylee will return home with no additional services. She will follow up with Ortho, as recommended. Her , Wolf will drive her home via private vehicle. She is happy to be returning home. Patient/Family Education Needs: Review discharge instructions regarding activity levels and medications, discussion of self care needs including ask me three.
--- NOTE | 2019-11-22 08:40 | PT.INDS ---
Date of service: 11/22/19 PT Notes Visit Reasons: POST OP (R) TOTAL HIP Physical Therapy Inpatient Discharge Summary Date: 11/22/2019 Dates of service: 11/20/2019 and 11/21/2019 This is a clinical summary of care provided on the duration of dates listed above. No charge was made in the completion of this documentation. Referring Doctor: Tod Brunner MD PT Orders: PT CONSULT: Status post Ortho surgery. S/P posterolateral R hip total arthroplasty Precautions: Fall. Standard. WBAT on right LE. Posterolateral hip precautions on. Patient Profile/Admitting Diagnosis: Patient is a 54-year-old female with arthritis of the right hip status post posterolateral total hip arthroplasty on postoperative day 2. PMHX: Medical History (Updated 11/20/2019 @ 14:46 by Vale Kelley DPT) Allergic rhinitis (Acute) Arthritis (Acute) Claustrophobia (Acute) Depression (Chronic) Hypertension (Chronic) Lumbago with sciatica (Acute) Post-menopausal bleeding (Acute) Surgical History (Updated 06/12/19 @ 12:15 by Leesa Mello) Status post total hip replacement, left (05/29/19) Social History/Home Situation: Patient lives with in a 1 floor house with a ramp to enter. She has a ramp to the living room and has a step up to the shower area. [id number] and her daughter live within 100 feet from her house. 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 Equipment Owned/DME: Wheelchair, 4 wheeled walker, single-point cane, rails, raised toilet seat, hospital bed Subjective: NT Objective: General Observation: NT. Mental Status: NT. Pain: NT. ROM: Right Upper Extremity: Shoulder Flexion WFL. Shoulder abduction WFL. Elbow flexion WFL. Wrist flexion WFL. Opening and closing of hand WFL. Left Upper Extremity: Shoulder Flexion WFL. Shoulder abduction WFL. Elbow flexion WFL. Wrist flexion WFL. Opening and closing of hand WFL. Right Lower Extremity: Hip flexion up to 90 degrees per movement precautions. Hip abduction WFL. Knee flexion WFL. Ankle dorsiflexion WFL. Ankle plantarflexion WFL. Left Lower Extremity:Hip flexion WFL. Hip abduction WFL. Knee flexion WFL. Ankle dorsiflexion WFL. Ankle plantarflexion WFL. Strength: Right Upper Extremity: Shoulder flexors 5/5. Shoulder abductors 5/5. Elbow flexors 5/5. Elbow extensors 5/5. Travel Nurse strong. Left Upper Extremity: Shoulder flexors 5/5. Shoulder abductors 5/5. Elbow flexors 5/5. Elbow extensors 5/5. Travel Nurse strong. Right Lower Extremity: Hip flexors 3-/5. Hip abductors 4/5. Knee flexors 4/5. Knee extensors 4/5. Ankle dorsiflexors 5/5. Ankle plantarflexors 5/5. Left Lower Extremity:Left Lower Extremity:Hip flexors 5/5. Hip abductors 5/5. Knee flexors 5/5. Knee extensors 5/5. Ankle dorsiflexors 5/5. Ankle plantarflexors 5/5. Sensation: Intact as to pain and pressure on bilateral lower extremities. Bed Mobility/Transfers: Rolling independent Supine to sit independent Sit to supine independent Sit to stand independent able to use BUE for support, requires use of front wheeled walker Stand to sit independent able to use BUE for support, requires use of front wheeled walker Bed to chair independent able to use BUE for support, requires use of front wheeled walker Chair to bed independent able to use BUE for support, requires use of front wheeled walker Gait: Patient tolerated level surface ambulation of 150 feet with front wheeled walker with WBAT on right LE requiring supervision with white-based gait and decreased knee flexion on the right. Patient is able to go up and down three 4 inch steps while holding onto bilateral rails with step to gait pattern requiring supervision assist. Balance: Static Sitting: Normal Dynamic Sitting: Normal Static Standing: Fair Dynamic Standing: Fair Assessment: Kaylee demonstrates need for assistive ambulatory device for all mobility ADL performance, difficulty with ambulation due to postoperative status, impairment in balance, and weakness on the right hip major muscle group. Kaylee is a 54-year-old female with arthritis of right hip status post posterolateral total hip arthroplasty on postoperative day 2. Patient is highly motivated to return to prior level of function and to return home as soon as she is medically cleared. She has all the equipment she needs at home and has a good support network. She is well aware of her movement precautions. Her prognosis for regaining prior level of function is good. Patient presented with clinical signs and symptoms consistent with current/admitting diagnoses that have resulted to mobility limitations, gait instability, generalized weakness, and impairment of motor control as demonstrated by the following impairment level findings: 1. Decreased strength to R hip major muscle groups 2. Impaired standing balance 3. Impaired activity tolerance 4. Limitation of joint range of motion in R hip due to movement precautions Impairments contributed to the following functional limitations: 1. Inability to safely ambulate without assistive device and physical assistance 2. Increase completion time for mobility ADL performance 3. Increased fall risk 4. Inability to negotiate steps alone safely Goals: Goals X1 week 1. Supine-Sit independent MET 2. Sit-Supine independent NOT MET 3. Sit-Stand independent MET 4. Stand-Sit independent MET 5. Bed-Chair independent MET 6. Chair-Bed independent MET 7. Independent gait on level surface with use of least restrictive device for at least 300 feet without report of pain nor dyspnea NOT MET 8. Independent stair negotiation while holding onto bilateral rails for at least 3 steps without report of pain nor dyspnea NOT MET 9. Independent with home exercise program MET 10. Good static and dynamic standing balance/tolerance NOT MET DISCHARGE RECOMMENDATIONS: May benefit from skilled physical therapy services according to orthopedic surgeon's timeline recommendations. Patient will be educated and trained on home exercise program per DEANDRE exercise protocol. TREATMENT CODE/TIME: NC. Thank you very much for this referral. Vale Kelley PT, DPT, CLT [facility] [place], [place]
== END 2019-11-21 13:55 | disposition home or self-care (01) | DRG 470 ==
LOC: PDS 10:15 → MS 10:28
PROVIDERS: Admitting Provider Orthopaedic Surgery; PCP Neuromusculoskeletal Medicine & OMM; Visit Provider Orthopaedic Surgery
PROC: 0SR904A Replacement of Right Hip Joint with Ceramic on Polyethylene Synthetic Substitute, Uncemented, Open Approach (ICD-10-PCS; CPT 27130; principal; 2019-11-20 07:30)
DX: M16.11 Unilateral primary osteoarthritis, right hip (principal); M25.551 Pain in right hip; Z96.641 Presence of right artificial hip joint; Z96.642 Presence of left artificial hip joint; I10 Essential (primary) hypertension; F32.9 Major depressive disorder, single episode, unspecified
CPT/HCPCS: 27130; 36415; 85027; 97110; 97162; 97530; NC; 72170; 73501; J0690; J1650; J1885; J2250; J2405; J2704; L1686

== ENCOUNTER 2019-12-06 10:21 | Outpatient (CLI) | payer BC, SELFPAY ==
--- NOTE | 2019-12-06 08:45 | DI.RAD_ITS ---
EXAM: XR HIP RT COMPLETE AP PELVIS INDICATION: 1ST POST OP R DEANDRE. COMPARISON: CR XR PELVIS AP from 11/20/2019 TECHNIQUE: 2D digital imaging was performed. FINDINGS: There has been no change in the bilateral hip prostheses. No abnormal bony lucencies are seen. IMPRESSION: Stable appearance of bilateral hip prostheses. DATA REPOSITORY: RADIATION DOSE DELIVERED:
== END 2019-12-06 10:41 ==
PROVIDERS: PCP Neuromusculoskeletal Medicine & OMM; Referring Provider Neuromusculoskeletal Medicine & OMM; Visit Provider Orthopaedic Surgery
DX: Z96.643 Presence of artificial hip joint, bilateral (principal); Z47.1 Aftercare following joint replacement surgery
CPT/HCPCS: 73502

== ENCOUNTER 2024-08-30 03:34 | Outpatient (CLI) | payer BC, SELFPAY ==
--- NOTE | 2024-08-30 14:00 | DI.US_ITS ---
APPROVED REPORT EXAM: Comprehensive 2D, Doppler, and color-flow Echocardiogram Patient Location: Out-Patient Key Punch Teacher: João Bhatia RDCS (AE) Indications: First degree AV block, obesity, palpitations, HTN Other Information Study Quality: Technically Limited. Technically limited study due to body habitus. Conclusion Normal left ventricular wall thickness and chamber size. Ejection fraction is 60 to 65%. Wall motio n is normal Normal right ventricular size and function Both atria are normal in size There is no structural or hemodynamically significant valvular disease Wall motion Left Ventricle The left ventricle is normal size. Left ventricular systolic function is normal. The left ventricular ejection fraction is within the normal range. There is normal left ventricular wall thickness. There is normal LV segmental wall motion. There is no ventricular septal defect visualized. LVEF is 60-65% . Right Ventricle The right ventricle is normal size. The right ventricular systolic function is normal. Atria The left atrium size is normal. The right atrium size is normal. Aortic Valve The aortic valve is normal in structure. There is no aortic valvular stenosis. No aortic regurgitatio n is present. Mitral Valve The mitral valve is normal in structure. No evidence of mitral valve stenosis. There is no mitral jada ve regurgitation noted. Tricuspid Valve The tricuspid valve is normal in structure. There is no tricuspid valve stenosis. Trace tricuspid reg urgitation. Pulmonic Valve The pulmonary valve is normal in structure. There is no pulmonic valvular stenosis. There is no pulmo karissa valvular regurgitation. Great Vessels The aortic root is normal in size. The ascending aorta is normal in size. Aortic arch is normal in ca liber. IVC is normal in size and collapses >50% with inspiration. Pericardium There is no pericardial effusion. 2D Dimensions IVSD d PLAX 0.94 cm F: 0.6-1.0 Ao Root d 2.81 cm F: 2.7 - 3.3 LVPW d PLAX 0.89 cm F: 0.6 - 1.0 Ao Asc Diam d 3.07 cm F: 2.3 - 3.1 LVID d PLAX 4.38 cm F: 3.8 - 5.2 LVDs 2.98 cm F: 2.2 - 3.5 LV EF Teichholz 60.5 % FS 32.10 % LV EDV (Teich) 86.9 mL LV ESV (Teich) 34.3 mL Stroke Vol Index (Teich) 27.11 M-Mode TAPSE 2.51 cm (M/F) >1.7 Auto EF LV EDV A4C 88.1 mL LV EDV A2C 82.9 mL LV EDV BP 86.3 mL LV ESV A4C 35.5 mL LV ESV A2C 30.0 mL LV ESV BP 32.4 mL LVEF(%) A4C 59.7 % LVEF(%) A2C 63.8 % LVEF(%) BP 62.5 % LV SV A4C 52.6 ml LV SV A2C 52.9 ml LV SV BP 53.9 ml LV CO A4C 4.3 L/min LV CO A2C 4.2 L/min LV CO BP 4.2 L/min HR A4C 81.08 BPM HR A2C 78.61 BPM LV EDV Index (BP) LA Volume LA Length A4C 4.2 cm LA Length A2C 4.5 cm LA Area A4C s 12.48 cm2 LA Area A2C s 10.25 cm2 LA Vol A4C A-L 31.11 mL LA Vol A2C A-L 19.98 mL LA Vol Biplane A-L 25.6 mL LA Vol/BSA A4C A-L LA Vol/BSA A2C A-L LA Vol/BSA BP A-L 13.2 mL/m2 LA Vol A4C MOD 29.4 mL LA Vol A2C MOD 19.3 mL LA Vol BP MOD 24.3 mL RA Volume RA Area A4C 6.5 cm2 RA ESV A4C (A-L) 12.5mL RA Vol/BSA A4C A-L RA Length A4C 2.8 cm RA ESV A4C (MOD) 11.6mL LV Diastology MV E' medial 0.079 (>0.07 m/s) MV E Vmax 1.06 (0.4-1.3 m/s) MV E/E' MED 13.44 (<14) MV A Vmax 1.00 (0.4-1.3 m/s) MV E' lateral 0.112 (>0.1 m/s) E/A Ratio 1.1 MV E/E' LAT 9.45 (<14) MV E' Average 0.095 m/s MV E/E'(average) 11.10 Aortic Valve AoV Vmax 1.43 m/s LVOT Vmax 0.94 m/s AoV Peak Grad 8.2 mmHg LVOT Peak Grad 3.5 mmHg AoV Area (Vmax) 1.70 cm2 LVOT VTI 0.213 m AoV VTI 0.294 m LVOT Mean Grad 2.1 mmHg AoV Mean Cirilo. 0.97 m/s LVOT SV 55.35 mL AoV Mean Grad 4.3 mmHg LVOT Diam s 1.80 cm AoV Area (VTI) 1.88 cm2 AV Regurg Peak Gr. 8.21 mmHg Velocity Ratio 0.66 Mitral Valve MV DT 156 (160-240 msec) MV Vmax TIPS 1.05 m/s MV Mean Grad 2.4 (<2mmHg) MV VTI 0.275 m
== END 2024-08-30 03:54 ==
LOC: DI 03:35
PROVIDERS: PCP Nurse Practitioner Family; Visit Provider Internal Medicine Cardiovascular Disease
DX: I44.0 Atrioventricular block, first degree (principal); E66.01 Morbid (severe) obesity due to excess calories; R00.2 Palpitations; I10 Essential (primary) hypertension; F32.A Depression, unspecified
CPT/HCPCS: 93306

== ENCOUNTER 2024-09-18 08:05 | Outpatient (CLI) | payer BC, SELFPAY | END 2024-09-18 08:06 | disposition home or self-care (01) | LOC: DI.CARD 08:06 | PROVIDERS: PCP Nurse Practitioner Family; Visit Provider Registered Nurse | DX: I44.0 Atrioventricular block, first degree (principal); R00.2 Palpitations | CPT/HCPCS: 93010 ==

== ENCOUNTER 2024-10-09 08:39 | Outpatient (CLI) | payer BC, SELFPAY | END 2024-10-09 08:40 | disposition home or self-care (01) | LOC: DI.CARD 08:41 | PROVIDERS: PCP Nurse Practitioner Family; Visit Provider Registered Nurse | DX: I44.0 Atrioventricular block, first degree (principal); R00.2 Palpitations | CPT/HCPCS: 93010 ==